=== PATIENT | female | born 1985 | race Caucasian/White ===

== ENCOUNTER 2017-07-24 18:14 | Emergency (ER) | payer BC ==
[2017-07-24 18:35] VITALS: BP 137/96; PULSE 116; RESP 18; TEMP 98.2; O2SAT 100
[2017-07-24] MEDS ORDERED: AUGM875T3 PO (21:22)
[2017-07-24] MEDS ORDERED: AMOXICILLIN/CLAVULANATE K 875 MG TAB PO ONE (21:30)
--- NOTE | 2017-07-24 21:31 | PD ---
HPI Chief Complaint: Bite or Sting Time Seen by Provider: 21:09 Travel History International Travel<30 days: No Contact w/Intl Traveler<30days: No Traveled to known affect area: No History of Present Illness HPI 32-year-old white female presents emergency department requesting rabies immunization. Patient states that she was bitten in the face and scratched in the left arm by her cat yesterday. She states that her cat was an outdoor cat. She had not had it vaccinated. It had been in his normal state of health up until yesterday when it was mauled by 2 dogs. The patient states that when she was taken the cat to the vet she was bitten and scratched. Unfortunately the cat . She had contacted animal control regarding the incidence. They advised her to have the cat tested for rabies. She had refused. She was advised by animal control to follow-up with the health department for possible rabies. The health department stated that she needed to come to the hospital for rabies treatment. She is from [place]. She states that she is visiting her father who lives here in [facility]. The patient states that she has not been sick. She is up-to-date with immunizations. She denies any fever chills. No discharge from her wounds. She does report a cefaclor allergy but can take penicillin. [facility] Past Medical History Narrative Medical Depression, hypercholesterolemia, diabetes Depression: Yes High Cholesterol: Yes Diabetes: Yes Patient Takes Glucophage: No Diminished Hearing: No Hypertension: Yes Medical other: Yes (gallbladder) Tetanus Vaccination: < 5 Years Influenza Vaccination: No ?: Not LMP: 06/25/2017 Past Surgical History Surgical History: No Previous Surgery Social History Alcohol Use: Yes (1-2 drinks a month) Tobacco Use: No Substance Use: Yes (Marijuana) Allergies-Medications (Allergen,Severity, Reaction): Coded Allergies: cefaclor (Verified Adverse Reaction, Intermediate, RASH, 07/24/17) Reported Meds & Prescriptions Reported Meds & Active Scripts Active Augmentin (Amoxicillin-Clavulanate) 875-125 Mg Tab 1 Tab PO BID Review of Systems General / Constitutional: No: Fever Eyes: No: Visual changes HENT: No: Headaches Cardiovascular: No: Chest Pain or Discomfort Respiratory: No: Shortness of Breath Gastrointestinal: No: Abdominal Pain Genitourinary: No: Dysuria Musculoskeletal: No: Pain Skin: No Rash Neurologic: No: Weakness Psychiatric: No: Depression Endocrine: No: Polydipsia Hematologic/Lymphatic: No: Easy Bruising Physical Exam Narrative GENERAL: Well-developed, well-nourished in no acute distress. Nontoxic appearing. HEAD: Normocephalic, Patient has superficial scratches on the right anterior forehead and cheek from the patient's alleged Right. There is no erythema, discharge or edema. No tenderness. EYES: Pupils equal round and reactive. Extraocular motions intact. No scleral icterus. No injection or drainage. ENT: TMs clear without erythema. The external auditory canals clear. Nose: clear . Posterior pharynx is pink and moist. No tonsillar edema or exudate. Uvula midline. Airway patent. NECK: Trachea midline.Supple, nontender, moves head freely. No central bony tenderness or spasm. CARDIOVASCULAR: Regular rate and rhythm without murmurs, gallops, or rubs. RESPIRATORY: Clear to auscultation. Breath sounds equal bilaterally. No wheezes , rales, or rhonchi. GASTROINTESTINAL: Abdomen soft, non-tender, nondistended. No hepato-splenomegaly , or palpable masses. No guarding. EXTREMITIES: No clubbing, cyanosis, or edema. No joint tenderness, effusion, or edema noted. Patient has a scratch the left forearm. It does not look infected. It is superficial. BACK: Nontender without deformity or crepitance. No flank tenderness. Data Data Last Documented VS Vital Signs Date Time Temp Pulse Resp B/P (MAP) Pulse Ox O2 Delivery O2 Flow Rate FiO2 07/24/17 18:35 98.2 116 18 137/96 (110) 100 Orders Orders Amoxicil-Clavulanate (Augmentin) (07/24/17 21:30) Ed Discharge Order (07/24/17 21:22) MDM Medical Decision Making Medical Screen Exam Complete: Yes Emergency Medical Condition: Yes Medical Record Reviewed: Yes Differential Diagnosis Differential diagnosis: Cat bite, rabies, Pasteurella multocida, cellulitis, abscess Narrative Course I explained to the patient that there has not been any reported cases of rabies in [facility] from cats here in many years. The cat was in his normal state of health prior to being mauled by the 2 dogs. There is no indication that the cat has rabies. The most appropriate way of ruling out potential rabies and the cat is to have the cat tested but she refuses. I do not believe it is appropriate to treat the patient for rabies. I explained to the patient that we would have to inject the rabies immunoglobulin into her face in the areas of the bites. I once again reiterated that performing rabies immunization and giving her IgM is inappropriate. If she is concerned regarding potential rabies that she must have her cat tested. Patient will be given Augmentin 875 mg p.o. She will be discharged home with prescription. Diagnosis Primary Impression: Cat bite Qualified Codes: W55.01XA - Bitten by cat, initial encounter Patient Instructions: General Instructions Additional Instructions: Rest. Daily wound care with soap, water, Neosporin. Augmentin. Notify animal control and have your cat tested for rabies. Return to the ER for emergencies. Follow-up with a primary care doctor in 2-3 days for wound check. Med/Other Pt SpecificInfo: Prescription(s) given Scripts Amoxicillin-Clavulanate (Augmentin) 875-125 Mg Tab 1 TAB PO BID for Infection, #14 TAB 0 Refills Prov: Cameron Del Cid MD 07/24/17 Disposition: DISCHARGE HOME Condition: Stable Daryl Hammond Jul 24, 2017 21:31
== END 2017-07-24 21:41 | disposition home or self-care (01) ==
LOC: NEPD 18:14
DX: S00.87XA Other superficial bite of other part of head, initial encounter (principal); S50.812A Abrasion of left forearm, initial encounter; W55.01XA Bitten by cat, initial encounter; F32.9 Major depressive disorder, single episode, unspecified; E78.00 Pure hypercholesterolemia, unspecified; E11.9 Type 2 diabetes mellitus without complications; I10 Essential (primary) hypertension; Z88.8 Allergy status to other drugs, medicaments and biological substances
CPT/HCPCS: 99283